=== PATIENT | male | born 1945 ===

== ENCOUNTER 2018-03-31 08:49 | Outpatient (REF) | payer MEDICARE, BC, SELFPAY ==
[2018-04-01 09:16] LABS: HCT 45.7 % (40.0-50.0); HGB 15.5 g/dL (13.5-17.5); Mean Corp. HGB Concentration 33.9 g/dL (32.0-36.0); Mean Corpuscular Hemoglobin 30.9 pg (27.0-33.0); Mean Corpuscular Volume 91.2 fL (80-95); Mean Platelet Volume 11.5 fL (8.0-11.0); Platelet Count 234 x1000/uL (130-400); RBC 5.01 m/cumm (4.50-6.00); RBC Distribution Width 12.3 % (11.8-14.1); White Blood Cell Count 7.69 k/cumm (4.4-10.8)
[2018-04-01 10:12] LABS: TSH 1.62 uIU/mL (0.358-3.74)
== END 2018-03-31 09:09 ==
LOC: NCHCN 08:49
PROVIDERS: PCP Internal Medicine; Visit Provider Internal Medicine
DX: R00.0 Tachycardia, unspecified (principal); I10 Essential (primary) hypertension
CPT/HCPCS: 85027; 84443

== ENCOUNTER 2020-10-06 15:41 | Outpatient (REF) | payer MEDICARE, BC, SELFPAY ==
[2020-10-06 15:39] LABS: HCT 43.8 % (40.0-50.0); HGB 14.8 g/dL (13.5-17.5); MCHC 33.8 % (32.0-36.0); MCV 91.6 fL (80-95); MPV 10.9 fL (8.0-11.0); Platelet Count 247 10^3/uL (130-400); RBC 4.78 10^6/uL (4.36-5.78); RDW-SD 40.4 fL; WBC 5.41 10^3/uL (4.4-10.8)
[2020-10-06 16:08] LABS: ALT 23 U/L (16-63); Anion Gap 7.2 mmol/L (3-11); BUN 14 mg/dL (7-18); CO2 28.8 mmol/L (21.0-32.0); CREATININE 1.1 mg/dL (0.70-1.30); Calcium 8.8 mg/dL (8.5-10.1); Chloride 105 mmol/L (98-107); Glucose 100 mg/dL (74-106); LDL CHOLESTEROL 115 mg/dL (<100); Potassium 4.1 mmol/L (3.5-5.1); Sodium 141 mmol/L (136-145)
[2020-10-06 16:33] LABS: C-Reactive Protein 0.25 mg/dL (0.0-0.3)
== END 2020-10-06 15:42 | disposition home or self-care (01) ==
LOC: NCHCN 15:41
PROVIDERS: PCP Internal Medicine; Visit Provider Internal Medicine
DX: I10 Essential (primary) hypertension (principal); K21.9 Gastro-esophageal reflux disease without esophagitis; M53.3 Sacrococcygeal disorders, not elsewhere classified
CPT/HCPCS: 80048; 83721; 85027; 84460; 86140

== ENCOUNTER 2021-10-11 16:39 | Outpatient (REF) | payer MEDICARE, BC, SELFPAY ==
[2021-10-11 21:05] LABS: ALT 24 U/L (16-63); Anion Gap 8.7 mmol/L (3-11); BUN 21 mg/dL (7-18); CO2 28.3 mmol/L (21.0-32.0); Calcium 8.9 mg/dL (8.5-10.1); Calculated LDL 139 mg/dL (<100); Chloride 104 mmol/L (98-107); Cholesterol 232 mg/dL (<200); Glucose 99 mg/dL (74-106); HDL Cholesterol 78 mg/dL (40-60); Potassium 4.4 mmol/L (3.5-5.1); Sodium 141 mmol/L (136-145); Triglyceride 79 mg/dL (<150)
== END 2021-10-11 16:40 | disposition home or self-care (01) ==
LOC: NCHCN 16:39
PROVIDERS: PCP Internal Medicine; Visit Provider Internal Medicine
DX: I10 Essential (primary) hypertension (principal); K21.9 Gastro-esophageal reflux disease without esophagitis; E78.5 Hyperlipidemia, unspecified
CPT/HCPCS: 80048; 80061; 84460

== ENCOUNTER 2022-10-01 15:40 | Outpatient (REF) | payer MEDICARE, BC, SELFPAY ==
[2022-10-01 20:54] LABS: ALT 33 U/L (16-63); BUN 21 mg/dL (7-18); CREATININE 1.2 mg/dL (0.70-1.30); Calcium 9.5 mg/dL (8.5-10.1); Calculated LDL 76 mg/dL (<100); Chloride 103 mmol/L (98-107); Cholesterol 184 mg/dL (<200); Estimated GFR 63.07 (mL/min/1.73m2); Glucose 106 mg/dL (74-106); HDL Cholesterol 89 mg/dL (40-60); Potassium 4.3 mmol/L (3.5-5.1); Sodium 141 mmol/L (136-145); Triglyceride 98 mg/dL (<150)
[2022-10-01 21:36] LABS: Creatine Kinase 41 U/L (39-308)
== END 2022-10-01 15:41 | disposition home or self-care (01) ==
LOC: NCHCN 15:40
PROVIDERS: PCP Internal Medicine; Visit Provider Internal Medicine
DX: I10 Essential (primary) hypertension (principal); K21.9 Gastro-esophageal reflux disease without esophagitis
CPT/HCPCS: 80048; 80061; 82550; 84460

== ENCOUNTER 2023-09-30 14:57 | Outpatient (REF) | payer MEDICARE, BC, SELFPAY ==
[2023-09-30 19:14] LABS: Anion Gap 13.2 mmol/L (3-11); BUN 22 mg/dL (7-18); CO2 26.8 mmol/L (21.0-32.0); CREATININE 1.1 mg/dL (0.70-1.30); Calcium 9.7 mg/dL (8.5-10.1); Chloride 103 mmol/L (98-107); Estimated GFR 69.57 (mL/min/1.73m2); Glucose 108 mg/dL (74-106); Potassium 4.1 mmol/L (3.5-5.1); Sodium 143 mmol/L (136-145)
== END 2023-09-30 14:58 | disposition home or self-care (01) ==
LOC: NCHCN 14:57
PROVIDERS: PCP Internal Medicine; Visit Provider Internal Medicine
DX: I10 Essential (primary) hypertension (principal)
CPT/HCPCS: 80048